=== PATIENT | female | born 1930 | race Caucasian/White ===

== ENCOUNTER 2016-09-29 13:29 | Emergency (ER) | payer MEDICARE ==
[2016-09-29 14:03] LABS: Bacteria/HPF 2+ HPF (None Seen); Bilirubin Negative (Negative); Blood, Urine Negative (Negative); Glucose, Urine (Dipstick) Negative (Negative); Ketone, Urine Negative (Negative); Nitrite Negative (Negative); Protein, Urine (Dipstick) 100 mg/dL (Neg-Trace); RBC/HPF 0-3 HPF (0-3); Squamous Epithelial 0-3 HPF (0-3); Urobilinogen 0.2 mg/dL (0.2-1.0)
[2016-09-29] MEDS ORDERED: Sulfameth/Trimethoprim DS 800-160mg TAB ONE (14:20)
--- NOTE | 2016-09-29 14:31 | ERRECORD ---
[facility] EMERGENCY RECORD HPI UTI (13:42 WMEI) CHIEF COMPLAINT: Patient presents for evaluation of urinary tract infection signs or symptoms:, dysuria, frequency, Patient presents for evaluation of hz of recurrent utis last one 6 mths ago. HISTORIAN: History provided by patient, x 5 days. LOCATION: Symptoms are localized, most severe in the suprapubic region, Radiation to the back. TIME COURSE: Gradual onset of symptoms, 5, days priror to arrival. ASSOCIATED WITH FEMALE: No associated chills, No associated fever. EXACERBATED BY: Patient's condition exacerbated by nothing. RELIEVED BY: Patient's condition relieved by nothing. ROS (13:44 WMEI) CONSTITUTIONAL: Historian denies chills, denies fever. EYES: Historian denies eye pain, denies eye discharge. ENT: Historian denies rhinorrhea, denies sore throat. CARDIOVASCULAR: Historian denies chest pain, no radiation. RESPIRATORY: Historian denies cough, denies shortness of breath. GI: Historian denies abdominal pain, denies nausea. GENITOURINARY FEMALE: Historian reports dysuria, reports urgency. MUSCULOSKELETAL: Historian denies joint stiffness, denies joint swelling. SKIN: Historian denies skin changes, denies skin lesions. NEUROLOGIC: Historian denies confusion, denies mental status changes. PSYCHIATRIC: Historian denies anxiety, denies depression, denies drug abuse. PAST MEDICAL HISTORY (13:37 CTUR) MEDICAL HISTORY: Flu vaccine up to date, Tetanus not up to date, Pneumococcal vaccine up to date, Flu vaccine up to date, Tetanus not up to date, Pneumococcal vaccine up to date, Past medical history includes gastrointestinal disease, diverticulitis, DIAGNOSED 04/2015, Notes: [place], TIA, HYPOTHYROIDISM, MENIERES DISEASE, Past medical history includes history of diabetes, Type II, Past medical history includes history of hyperlipidemia, /Past /medical history includes history of hypertension. 05/08/16. pt denies having had a TIA and no hypothyroidism on 09/29/16. 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 denies having her gall bladder removed on 09/29/16. PSYCHIATRIC HISTORY: No previous psychiatric history. verified 05/08/16. denies 1/08/17. SOCIAL HISTORY: Patient denies alcohol use, Patient denies drug use, Patient has no smoking history, Patient denies alcohol use, Patient denies drug use, Patient has no smoking history. 05/08/16. &a-1R&a+25V*p+0X*x4043Z*c152B*c15G*c2P*p-0X&a-25V&a+1R Name: Mayela Altman : F86 MedRec: [id number] AcctNum: [id number] Prepared: Meka Sep 29, 2016 14:51 by Interface Page 1 of 4 pMD [facility] EMERGENCY RECORD KNOWN ALLERGIES No Known Drug Allergies (Unconfirmed) CURRENT MEDICATIONS (13:39 CTUR) pravastatin: TABLET : Strength - 40 mg : ORAL Patient Dose: 1 tab(s) Oral once a day. amLODIPine: TABLET : Strength - 10 mg : ORAL Patient Dose: 1 tab(s) Oral once a day. fenofibrate: TABLET : Strength - 160 mg : ORAL Patient Dose: 145 mg Oral once a day. Zetia: TABLET : Strength - 10 mg : ORAL Patient Dose: 1 tab(s) Oral once a day. levothyroxine: TABLET : Strength - 75 mcg : ORAL Patient Dose: 1 tab(s) Oral once a day. Namenda XR: CAPSULE SPRINKLE, EXTENDED RELEASE 24 HR : Strength - 7 mg : ORAL Patient Dose: 1 tab(s) Oral once a day (in the evening).1 TAB DAILY 14 DAYS THEN 2 TABS DAILY. donepezil: TABLET : Strength - 10 mg : ORAL Patient Dose: 1 tab(s) Oral once a day (at bedtime). vitamin E: CAPSULE : Strength - 1,000 unit : ORAL Patient Dose: 400 mg Oral once a day. Lantus Solostar: INSULIN PEN (ML) : Strength - 100 unit/mL (3 mL) : [15 mL(s)] : SUBCUTANEOUS Patient Dose: 17 units Subcutaneous once a day (in the morning). meTOPROLOL tartrate: TABLET : Strength - 25 mg : ORAL Patient Dose: 1 tab(s) Oral 2 times a day. Plavix: TABLET : Strength - 75 mg : ORAL Patient Dose: 1 tab(s) Oral once a day (in the morning). Complete Multivitamin: TABLET : ORAL Patient Dose: 1 tab(s) Oral once a day (in the morning). hydrALAZINE: TABLET : Strength - 25 mg : ORAL Patient Dose: 1 tab(s) Oral 3 times a day. VITAL SIGNS (13:34 CTUR) VITAL SIGNS: BP: 153/69, Pulse: 71, Resp: 16, Temp: 97.8 (Oral), Pain: 7, O2 sat: 95 on Room Air, Time: 09/29/2016 13:34. &a-1R&a+25V*p+0X*f9236K*c152B*c15G*c2P*p-0X&a-25V&a+1R Name: Mayela Altman : F86 MedRec: [id number] AcctNum: [id number] Prepared: Meka Sep 29, 2016 14:51 by Interface Page 2 of 4 pMD [facility] EMERGENCY RECORD PHYSICAL EXAM (13:49 WMEI) CONSTITUTIONAL: Vital signs reviewed, Patient appears non toxic, Patient alert and oriented to person, place and time. HEAD: Head exam included findings of head atraumatic, normocephalic. EYES: Conjunctiva normal, Sclera normal. ENT: Ear exam normal, Nose exam normal. NECK: Neck exam included findings of normal range of motion, Trachea midline. RESPIRATORY CHEST: Breath sounds clear, Chest exam included findings of chest movement symmetrical. CARDIOVASCULAR: Cardiovascular exam included findings of heart rate regular rate and rhythm, Heart sounds normal. ABDOMEN FEMALE: Abdominal exam included findings of abdomen tender, to the suprapubic region, mild intensity, Liver normal, Spleen normal. BACK: Back exam included findings of normal inspection, range of motion normal. UPPER EXTREMITY: Upper extremity exam included findings of inspection normal, Range of motion normal, Motor strength normal. LOWER EXTREMITY: Lower extremity exam included findings of inspection normal, Range of motion normal, Motor strength normal, no edema. NEURO: Lindsey coma scale 15, Neuro exam findings include patient oriented to person, place and time, Speech normal, Gait normal. SKIN: Skin exam included findings of skin warm, dry, and normal in color. LYMPHATIC: Lymphatic exam normal. PSYCHIATRIC: Psychiatric exam included findings of patient oriented to person place and time, Normal affect, Judgment normal, Insight normal. MEDICATION ADMINISTRATION SUMMARY Drug Name: Bactrim DS, Dose Ordered: 1 tab(s), Route: Oral, Status: Given, Time: 14:20 09/29/2016, Detailed record available in Medication Service section. PROBLEM LIST No recorded problems DIAGNOSIS (14:12 WMEI) FINAL: PRIMARY: UTI. PRESCRIPTION (14:12 WMEI) Bactrim DS: TABLET : 800 mg-160 mg : ORAL : Quantity: 1 Unit: tab(s) Route: ORAL Schedule: 2 times a day (before meals) Dispense: 14 Unit: tab(s) May substitute. Refills: No Refills . NOTES: No refills. &a-1R&a+25V*p+0X*f5525C*c152B*c15G*c2P*p-0X&a-25V&a+1R Name: Mayela Altmna : F86 MedRec: [id number] AcctNum: [id number] Prepared: Meka Sep 29, 2016 14:51 by Interface Page 3 of 4 pMD [facility] EMERGENCY RECORD DISPOSITION PATIENT: Disposition Type: Discharge, Disposition: *Discharge Home. (14:12 WMEI) Patient left the department. (14:22 LGIB) Cameron: CTUR=ROBER Valadez, Bonnie LGIB=ROBER Blanco, Lena WMEI=DO Daniel William &a-1R&a+25V*p+0X*p0138F*c152B*c15G*c2P*p-0X&a-25V&a+1R Name: Mayela Altman : F86 MedRec: [id number] AcctNum: [id number] Prepared: Meka Sep 29, 2016 14:51 by Interface Page 4 of 4 pMD MTDD
--- NOTE | 2016-09-29 14:34 | PICIS ---
[facility] EMERGENCY RECORD TRIAGE (13:34 CTUR) TRIAGE NOTES: Patient reports for the past four to five days she has been having low back pain and burning with urination. (13:34 CTUR) PATIENT: NAME: Mayela Altman, AGE: 86, GENDER: female, : Sat 1930, TIME OF GREET: Sun Sep 29, 2016 13:29, PREFERRED LANGUAGE: Italian, ETHNICITY: Not or , ECODE BILLING MAP: [facility], SSN: [id number], Zip Code: [address], KG WEIGHT: 63.96, PHONE: , , , PERSON ID: [id number], PAYMENT: X Medicare, PCP: MD Brizuela Kyle. (13:34 CTUR) ADMISSION: URGENCY: 4 Non Urgent, ADMISSION SOURCE: Home, TRANSPORT: CAR, BED: TRIAGE. (13:34 CTUR) SIRS SCORING: Heart Rate 55-109 (0), Temp range 96.8-101.1 (0), respiratory rate 12-24 (0), Latest WBC 3-14.9 (0), Mental Status altered: no (0). (13:37 CTUR) TRIAGE SCREENING: Patient denies suicidal ideation, Patient denies presence of domestic violence. (13:37 CTUR) PROVIDERS: TRIAGE NURSE: Bonnie Valadez RN. (13:34 CTUR) VITAL SIGNS: BP 153/69, Pulse 71, Resp 16, Temp 97.8, (Oral), Pain 7, O2 Sat 95, on Room Air, Time 09/29/2016 13:34. (13:34 CTUR) PREVIOUS VISIT ALLERGIES: No Known Drug Allergies. (13:34 CTUR) No Known Drug Allergies. (13:37 CTUR) KNOWN ALLERGIES No Known Drug Allergies (Unconfirmed) CURRENT MEDICATIONS (13:39 CTUR) pravastatin: TABLET : Strength - 40 mg : ORAL Patient Dose: 1 tab(s) Oral once a day. amLODIPine: TABLET : Strength - 10 mg : ORAL Patient Dose: 1 tab(s) Oral once a day. fenofibrate: TABLET : Strength - 160 mg : ORAL Patient Dose: 145 mg Oral once a day. Zetia: TABLET : Strength - 10 mg : ORAL Patient Dose: 1 tab(s) Oral once a day. levothyroxine: TABLET : Strength - 75 mcg : ORAL Patient Dose: 1 tab(s) Oral once a day. Namenda XR: CAPSULE SPRINKLE, EXTENDED RELEASE 24 HR : Strength - 7 mg : ORAL Patient Dose: 1 tab(s) Oral once a day (in the evening).1 TAB DAILY 14 DAYS THEN 2 TABS DAILY. donepezil: TABLET : Strength - 10 mg : ORAL Patient Dose: 1 tab(s) Oral once a day (at bedtime). vitamin E: &a-1R&a+25V*p+0X*h2062B*c152B*c15G*c2P*p-0X&a-25V&a+1R Name: Mayela Altman : F86 MedRec: [id number] AcctNum: [id number] Prepared: Meka Sep 29, 2016 14:57 by Interface Page 1 of 6 pMD [facility] EMERGENCY RECORD CAPSULE : Strength - 1,000 unit : ORAL Patient Dose: 400 mg Oral once a day. Lantus Solostar: INSULIN PEN (ML) : Strength - 100 unit/mL (3 mL) : [15 mL(s)] : SUBCUTANEOUS Patient Dose: 17 units Subcutaneous once a day (in the morning). meTOPROLOL tartrate: TABLET : Strength - 25 mg : ORAL Patient Dose: 1 tab(s) Oral 2 times a day. Plavix: TABLET : Strength - 75 mg : ORAL Patient Dose: 1 tab(s) Oral once a day (in the morning). Complete Multivitamin: TABLET : ORAL Patient Dose: 1 tab(s) Oral once a day (in the morning). hydrALAZINE: TABLET : Strength - 25 mg : ORAL Patient Dose: 1 tab(s) Oral 3 times a day. VITAL SIGNS (13:34 CTUR) VITAL SIGNS: BP: 153/69, Pulse: 71, Resp: 16, Temp: 97.8 (Oral), Pain: 7, O2 sat: 95 on Room Air, Time: 09/29/2016 13:34. NURSING ASSESSMENT: GENITOURINARY (13:43 CTUR) CONSTITUTIONAL: Complex assessment performed, Patient arrives ambulatory, Gait steady, History obtained from patient, Patient appears comfortable, Patient cooperative, Patient alert, Oriented to person, place and time, Skin warm, Skin dry, Skin normal in color, Mucous membranes pink, Mucous membranes moist, Patient complains of Dysuria/Low back pain, Patient reports having low back pain and painful urination for the past five days. PAIN FEMALE: aching pain, to the suprapubic region, low back, on a scale 0-10 patient rates pain as 7. NONVERBAL PAIN: Non-Verbal pain assessment findings include: No non-verbal complaints while at rest (0), Non-Verbal complaints not present with movement (0), Facial Grimaces not present at rest (0), Facial grimaces not present with movement (0), Bracing not present at rest (0), Bracing not present with movement (0), Restlessness not present at rest (0), Restlessness not present with movement (0), Rubbing not present at rest (0), Rubbing not present with movement (0), Result: 0. GENITOURINARY FEMALE: Associated with urinary complaints, burning, dysuria, Date and time of last void: 09/29/2016 13:44. ABDOMEN: Abdomen assessment findings include abdomen symmetrical, Abdomen soft, non-tender, no associated nausea, no associated vomiting, no associated diarrhea. SAFETY: Side rails up, Cart/Stretcher in lowest position, Family at bedside, Call light within reach, Hospital ID band on. &a-1R&a+25V*p+0X*d4055T*c152B*c15G*c2P*p-0X&a-25V&a+1R Name: Mayela Altman : F86 MedRec: [id number] AcctNum: [id number] Prepared: Meka Sep 29, 2016 14:57 by Interface Page 2 of 6 pMD [facility] EMERGENCY RECORD NURSING PROCEDURE: DISCHARGE NOTE (14:23 LGIB) DISCHARGE: Patient discharged to home, ambulating with cane, family driving, accompanied by parent, Summary of Care printed/ provided, Patient requested and was provided an electronic copy of Discharge Instructions, Discharge instructions given to patient, Simple or moderate discharge teaching performed, Prescriptions given and instructions on side effects given, Above person(s) verbalized understanding of discharge instructions and follow-up care, Patient treated and evaluated by physician. BELONGINGS: Belongings and valuables with patient at time of discharge include:, Belongings remain with patient, Valuables remain with patient. ORDER DETAILS Order Name: Culture, Urine, Status: Active, Time: 14:11 09/29/2016, User: [facility], - Ordered for: DO Daniel William, - Entered by: DO Daniel William - Meka Sep 29, 2016 14:11, - Quantity: 1, Order Name: Urinalysis with Microscopic, Status: Active, Time: 13:42 09/29/2016, User: [facility], - Ordered for: DO Daniel William, - Entered by: DO Daniel William - Meka Sep 29, 2016 13:42, - Quantity: 1. MEDICATION ADMINISTRATION SUMMARY Drug Name: Bactrim DS, Dose Ordered: 1 tab(s), Route: Oral, Status: Given, Time: 14:20 09/29/2016, Detailed record available in Medication Service section. MEDICATION SERVICE (14:20 WMEI) Bactrim DS: Order: Bactrim DS (sulfamethoxazole/trimethoprim) - Dose: 1 tab(s) : Oral Schedule: Now Ordered by: Sameer Daniel DO Entered by: DO Meka Jamison Sep 29, 2016 14:12 , Acknowledged by: ROBER Lara Sep 29, 2016 14:19 Documented as given by: ROBER Lara Sep 29, 2016 14:20 Patient, Medication, Dose, Route and Time verified prior to administration. Site: Medication administered P.O., Correct patient, time, route, dose and medication confirmed prior to administration, Patient advised of actions and side-effects prior to administration, Allergies confirmed and medications reviewed prior to administration, Patient in position of comfort, Side rails up, Cart in lowest position, Family at bedside. HPI UTI (13:42 WMEI) &a-1R&a+25V*p+0X*o3750A*c152B*c15G*c2P*p-0X&a-25V&a+1R Name: Mayela Altman : F86 MedRec: [id number] AcctNum: [id number] Prepared: Meka Sep 29, 2016 14:57 by Interface Page 3 of 6 pMD [facility] EMERGENCY RECORD CHIEF COMPLAINT: Patient presents for evaluation of urinary tract infection signs or symptoms:, dysuria, frequency, Patient presents for evaluation of hz of recurrent utis last one 6 mths ago. HISTORIAN: History provided by patient, x 5 days. LOCATION: Symptoms are localized, most severe in the suprapubic region, Radiation to the back. TIME COURSE: Gradual onset of symptoms, 5, days priror to arrival. ASSOCIATED WITH FEMALE: No associated chills, No associated fever. EXACERBATED BY: Patient's condition exacerbated by nothing. RELIEVED BY: Patient's condition relieved by nothing. ROS (13:44 WMEI) CONSTITUTIONAL: Historian denies chills, denies fever. EYES: Historian denies eye pain, denies eye discharge. ENT: Historian denies rhinorrhea, denies sore throat. CARDIOVASCULAR: Historian denies chest pain, no radiation. RESPIRATORY: Historian denies cough, denies shortness of breath. GI: Historian denies abdominal pain, denies nausea. GENITOURINARY FEMALE: Historian reports dysuria, reports urgency. MUSCULOSKELETAL: Historian denies joint stiffness, denies joint swelling. SKIN: Historian denies skin changes, denies skin lesions. NEUROLOGIC: Historian denies confusion, denies mental status changes. PSYCHIATRIC: Historian denies anxiety, denies depression, denies drug abuse. PAST MEDICAL HISTORY (13:37 CTUR) MEDICAL HISTORY: Flu vaccine up to date, Tetanus not up to date, Pneumococcal vaccine up to date, Flu vaccine up to date, Tetanus not up to date, Pneumococcal vaccine up to date, Past medical history includes gastrointestinal disease, diverticulitis, DIAGNOSED 04/2015, Notes: [place], TIA, HYPOTHYROIDISM, MENIERES DISEASE, Past medical history includes history of diabetes, Type II, Past medical history includes history of hyperlipidemia, /Past /medical history includes history of hypertension. 05/08/16. pt denies having had a TIA and no hypothyroidism on 09/29/16. 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 denies having her gall bladder removed on 09/29/16. PSYCHIATRIC HISTORY: No previous psychiatric history. verified 05/08/16. denies 09/29/16. SOCIAL HISTORY: Patient denies alcohol use, Patient denies drug use, Patient has no smoking history, Patient denies alcohol use, Patient denies drug use, Patient has no smoking history. 05/08/16. &a-1R&a+25V*p+0X*l3679E*c152B*c15G*c2P*p-0X&a-25V&a+1R Name: Mayela Altman : F86 MedRec: [id number] AcctNum: [id number] Prepared: Meka Sep 29, 2016 14:57 by Interface Page 4 of 6 pMD [facility] EMERGENCY RECORD PHYSICAL EXAM (13:49 WMEI) CONSTITUTIONAL: Vital signs reviewed, Patient appears non toxic, Patient alert and oriented to person, place and time. HEAD: Head exam included findings of head atraumatic, normocephalic. EYES: Conjunctiva normal, Sclera normal. ENT: Ear exam normal, Nose exam normal. NECK: Neck exam included findings of normal range of motion, Trachea midline. RESPIRATORY CHEST: Breath sounds clear, Chest exam included findings of chest movement symmetrical. CARDIOVASCULAR: Cardiovascular exam included findings of heart rate regular rate and rhythm, Heart sounds normal. ABDOMEN FEMALE: Abdominal exam included findings of abdomen tender, to the suprapubic region, mild intensity, Liver normal, Spleen normal. BACK: Back exam included findings of normal inspection, range of motion normal. UPPER EXTREMITY: Upper extremity exam included findings of inspection normal, Range of motion normal, Motor strength normal. LOWER EXTREMITY: Lower extremity exam included findings of inspection normal, Range of motion normal, Motor strength normal, no edema. NEURO: Lindsey coma scale 15, Neuro exam findings include patient oriented to person, place and time, Speech normal, Gait normal. SKIN: Skin exam included findings of skin warm, dry, and normal in color. LYMPHATIC: Lymphatic exam normal. PSYCHIATRIC: Psychiatric exam included findings of patient oriented to person place and time, Normal affect, Judgment normal, Insight normal. EVENTS TRANSFER: Triage to Emergency Triage. (Meka Sep 29, 2016 13:34 CTUR) Emergency Triage to Emergency Room -04. (13:34 CTUR) Removed from Emergency Emergency Room -04. (14:22 LGIB) PROBLEM LIST No recorded problems DIAGNOSIS (14:12 WMEI) FINAL: PRIMARY: UTI. DISPOSITION PATIENT: Disposition Type: Discharge, Disposition: *Discharge Home. (14:12 WMEI) Patient left the department. (14:22 LGIB) INSTRUCTION (14:13 WMEI) DISCHARGE: UTI CYSTITIS FEMALE ADULT. &a-1R&a+25V*p+0X*l7740O*c152B*c15G*c2P*p-0X&a-25V&a+1R Name: Mayela Altman : F86 MedRec: [id number] AcctNum: [id number] Prepared: Meka Sep 29, 2016 14:57 by Interface Page 5 of 6 pMD [facility] EMERGENCY RECORD FOLLOWUP: [facility], [facility], [address] [place] [address], . SPECIAL: Follow-up with your PCP. PRESCRIPTION (14:12 WMEI) Bactrim DS: TABLET : 800 mg-160 mg : ORAL : Quantity: 1 Unit: tab(s) Route: ORAL Schedule: 2 times a day (before meals) Dispense: 14 Unit: tab(s) May substitute. Refills: No Refills . NOTES: No refills. IMAGING (14:24 LGIB) *DISCHARGE INSTRUCTIONS RECEIPT: Image captured from scanner. *SUPPLY CHARGE SHEET: Image captured from scanner. ADMIN (14:45 WMEI) DIGITAL SIGNATURE: DO Daniel William. Cameron: CTUR=ROBER Valadez, Bonnie LGIB=ROBER Blanco, Lena WMEI=DO Daniel William &a-1R&a+25V*p+0X*l7874U*c152B*c15G*c2P*p-0X&a-25V&a+1R Name: Mayela Altman : F86 MedRec: [id number] AcctNum: [id number] Prepared: Meka Sep 29, 2016 14:57 by Interface Page 6 of 6 pMD MTDD
== END 2016-09-29 14:22 | disposition home or self-care (01) ==
LOC: BURERS 13:29
DX: N39.0 Urinary tract infection, site not specified (principal); I25.2 Old myocardial infarction; E03.9 Hypothyroidism, unspecified; I10 Essential (primary) hypertension; E78.5 Hyperlipidemia, unspecified; E11.9 Type 2 diabetes mellitus without complications; Z86.73 Personal history of transient ischemic attack (TIA), and cerebral infarction without residual deficits; Z90.49 Acquired absence of other specified parts of digestive tract; Z95.5 Presence of coronary angioplasty implant and graft; Z95.0 Presence of cardiac pacemaker; Z79.01 Long term (current) use of anticoagulants; Z79.899 Other long term (current) drug therapy
CPT/HCPCS: 81001; 87086; 99283

== ENCOUNTER 2016-11-01 14:54 | Outpatient (CLI) | payer MEDICARE ==
[2016-11-01 15:30] LABS: #Eosinphils 0.2 thou/uL (0.0-0.7); #Lymphocytes 1.9 thou/uL (1.20-3.40); #Monocytes 0.5 thou/uL (0.11-0.59); #Neutrophils 2.3 thou/uL (1.40-6.50); %Basophils 0.9 % (0.0-1.0); %Eosinophils 3.4 % (0.0-10.0); %Monocytes 10.3 % (0.0-10.0); Hematocrit 35.8 % (36.0-47.0); Mean Platelet Volume 6.2 fL (7.4-10.4); Red Blood Cell (RBC) Count 3.62 mill/uL (4.20-5.40); White Blood Cell (WBC) Count 4.9 thou/uL (4.8-10.8)
[2016-11-01 15:48] LABS: Hemoglobin A1c 8.4 % (4.0-6.0)
[2016-11-01 15:50] LABS: ALT (SGPT) 13 U/L (0-55); AST (SGOT) 16 U/L (5-34); Alkaline Phosphatase 70 U/L (40-150); Anion Gap 11 mmol/L (10-20); BUN (Urea Nitrogen) 39 mg/dL (9.8-20.1); Bilirubin, Total 0.2 mg/dL (0.2-1.2); Calc. Creatinine Clearance 0 mL/min (70-130); Calcium 9.1 mg/dL (7.8-10.44); Carbon Dioxide 25 mmol/L (23-31); Chloride 105 mmol/L (98-107); Estimated GFR-MDRD 28; Globulin 4.1 g/dL (2.4-3.5); LDL Cholesterol, Calculated 57 mg/dL; Protein, Total 7.6 g/dL (5.8-8.1)
== END 2016-11-01 14:55 ==
LOC: HPCALD 14:54
PROVIDERS: ATTEND Family Medicine
DX: E11.9 Type 2 diabetes mellitus without complications (principal); I10 Essential (primary) hypertension; E03.9 Hypothyroidism, unspecified; E78.2 Mixed hyperlipidemia
CPT/HCPCS: 36415; 80053; 80061; 83036; 84439; 84443; 85025

== ENCOUNTER 2017-01-11 18:35 | Observation (INO) | payer MEDICARE ==
[2017-01-11 19:17] LABS: #Eosinphils 0.2 thou/uL (0.0-0.7); #Lymphocytes 2.2 thou/uL (1.20-3.40); #Monocytes 0.4 thou/uL (0.11-0.59); #Neutrophils 2.2 thou/uL (1.40-6.50); %Basophils 0.9 % (0.0-1.0); %Eosinophils 3.1 % (0.0-10.0); %Lymphocytes 44.5 % (21.0-51.0); %Monocytes 8.7 % (0.0-10.0); %Neutrophils 42.8 % (42.0-75.0); Hemoglobin 12.2 g/dL (12.0-16.0); MDiff Complete? YES; Macrocytosis SLIGHT = 6-15 cells (100X) (0-5/hpf); Mean Corpuscular HGB CONC 33.9 g/dL (32.0-36.0); Mean Corpuscular Hemoglobin 34.4 pg (27.0-31.0); Mean Platelet Volume 6.9 fL (7.4-10.4); Platelet Count 181 thou/uL (130-400); RBC Distribution Width 12.4 % (11.5-14.5); Red Blood Cell (RBC) Count 3.55 mill/uL (4.20-5.40)
[2017-01-11 19:23] LABS: CKMB 1.6 ng/mL (0-6.6); Troponin I 0.011 ng/mL (< 0.028)
[2017-01-11 19:27] LABS: ALT (SGPT) 16 U/L (0-55); AST (SGOT) 20 U/L (5-34); Albumin 3.6 g/dL (3.4-4.8); Alkaline Phosphatase 54 U/L (40-150); Anion Gap 11 mmol/L (10-20); BUN (Urea Nitrogen) 33 mg/dL (9.8-20.1); Bilirubin, Total 0.3 mg/dL (0.2-1.2); Calc. Creatinine Clearance 0 mL/min (70-130); Calcium 9.2 mg/dL (7.8-10.44); Carbon Dioxide 25 mmol/L (23-31); Chloride 105 mmol/L (98-107); Estimated GFR-MDRD 24; Globulin 4.2 g/dL (2.4-3.5); Glucose 290 mg/dL (83-110); Lipase 67 U/L (8-78); Potassium 4.1 mmol/L (3.5-5.1); Protein, Total 7.8 g/dL (5.8-8.1); Sodium 137 mmol/L (136-145)
--- NOTE | 2017-01-11 19:35 | RAD ---
CHEST TWO VIEWS 01/11/17 Comparison is made with the 10/31/15 study. Mild cardiomegaly is no different than before. Faint calcification is seen in the aortic arch and me epifanio sternotomy sutures unique prior surgery. A cardiac pacer remains in place. There is no vascular c ongestion, edema, or pleural effusion. The lungs are clear. IMPRESSION: Stable exam showing no acute finding. POS: HOME
[2017-01-11 19:58] LABS: Bilirubin Negative (Negative); Blood, Urine Negative (Negative); Clarity Clear (Clear); Glucose, Urine (Dipstick) 500 mg/dL (Negative); Leukocyte Negative (Negative); Nitrite Negative (Negative); Protein, Urine (Dipstick) Negative (Neg-Trace); Specific Gravity, Urine 1.015 (1.005-1.030); Urobilinogen 0.2 mg/dL (0.2-1.0); pH, Urine 7.5 (5.0-9.0)
[2017-01-11] MEDS ORDERED: Nitroglycerin 0.4 MG TAB (25 Tab Bottle) ONE (20:44)
[2017-01-11] MEDS ORDERED: Insulin Regular 300 UNITS/3 ML VIAL ONE (21:32)
[2017-01-12 05:17] LABS: #Basophils 0.1 thou/uL (0.0-0.2); #Eosinphils 0.2 thou/uL (0.0-0.7); #Lymphocytes 2.5 thou/uL (1.20-3.40); #Monocytes 0.5 thou/uL (0.11-0.59); #Neutrophils 2.7 thou/uL (1.40-6.50); %Basophils 1.5 % (0.0-1.0); %Eosinophils 3.8 % (0.0-10.0); %Lymphocytes 41.4 % (21.0-51.0); %Monocytes 8.7 % (0.0-10.0); %Neutrophils 44.6 % (42.0-75.0); Hemoglobin 12.8 g/dL (12.0-16.0); Mean Corpuscular HGB CONC 33.8 g/dL (32.0-36.0); Mean Corpuscular Hemoglobin 33.8 pg (27.0-31.0); Mean Platelet Volume 6.9 fL (7.4-10.4); Platelet Count 213 thou/uL (130-400); RBC Distribution Width 12.1 % (11.5-14.5); Red Blood Cell (RBC) Count 3.78 mill/uL (4.20-5.40)
[2017-01-12 05:38] LABS: Anion Gap 12 mmol/L (10-20); BUN (Urea Nitrogen) 29 mg/dL (9.8-20.1); Calcium 9.4 mg/dL (7.8-10.44); Carbon Dioxide 24 mmol/L (23-31); Chloride 109 mmol/L (98-107); Glucose 160 mg/dL (83-110); Potassium 3.9 mmol/L (3.5-5.1); Sodium 141 mmol/L (136-145)
[2017-01-12 05:46] LABS: Troponin I 0.021 ng/mL (< 0.028)
[2017-01-12 07:51] LABS: Calc. Creatinine Clearance 26 mL/min (70-130); Estimated GFR-MDRD 30
[2017-01-12 08:59] VITALS: BP 135/68; TEMP 98.1
[2017-01-12] MEDS: Levemir Flexpen 100 UNITS/ML PEN SC SCH (12:43)
[2017-01-12] MEDS ORDERED: traMADol HCl 50 MG TAB PO PRN (12:55)
[2017-01-12] MEDS ORDERED: HumaLOG 300 UNITS/3 ML VIAL SC PRN (13:17)
[2017-01-12] MEDS ORDERED: Dextrose 50% Abboject 50 ML SYRINGE SLOW IVP PRN (13:17)
[2017-01-12] MEDS ORDERED: Dextrose 5% in Water 1,000 ML IV PRN (13:17)
[2017-01-12] MEDS: HumaLOG 300 UNITS/3 ML VIAL SC PRN (13:55)
[2017-01-12] MEDS: Ezetimibe 10 MG TAB PO SCH (14:36)
[2017-01-12] MEDS: Famotidine 20 MG TAB PO SCH (14:36)
[2017-01-12] MEDS: Multivitamin W/ Minerals 1 TAB PO SCH (14:36)
[2017-01-12] MEDS: Clopidogrel Bisulfate 75 MG TAB PO SCH (14:37)
[2017-01-12] MEDS ORDERED: Atorvastatin Calcium 10 MG TAB PO SCH (21:00)
[2017-01-12] MEDS ORDERED: Famotidine 20 MG TAB PO SCH (21:00)
[2017-01-13] MEDS ORDERED: Levothyroxine Sodium 50 MCG TAB PO SCH (06:00)
[2017-01-13] MEDS ORDERED: Ezetimibe 10 MG TAB PO SCH (09:00)
[2017-01-13] MEDS ORDERED: Multivitamin W/ Minerals 1 TAB PO SCH (09:00)
[2017-01-13] MEDS ORDERED: Clopidogrel Bisulfate 75 MG TAB PO SCH (09:00)
[2017-01-13] MEDS ORDERED: Vitami E (Dl,Tocopheryl Acet) 400 UNITS CAP PO SCH (09:00)
== END 2017-01-12 14:45 | disposition home or self-care (01) ==
LOC: BURERS 18:35 → BURMED 22:00
PROVIDERS: ADMIT Family Medicine; ATTEND Family Medicine
DX: R53.1 Weakness (principal); I25.2 Old myocardial infarction; I25.10 Atherosclerotic heart disease of native coronary artery without angina pectoris; Z95.1 Presence of aortocoronary bypass graft; E03.9 Hypothyroidism, unspecified; K57.90 Diverticulosis of intestine, part unspecified, without perforation or abscess without bleeding; I10 Essential (primary) hypertension; Z79.4 Long term (current) use of insulin; Z79.84 Long term (current) use of oral hypoglycemic drugs; Z79.899 Other long term (current) drug therapy; E11.65 Type 2 diabetes mellitus with hyperglycemia; E86.0 Dehydration; Z79.82 Long term (current) use of aspirin
CPT/HCPCS: 36416; 51701; 71020; 80048; 80053; 81003; 82553; 83605; 83690; 83880; 84443; 84484; 85025; 87040; 93005; 94760; 96372; 36415-59; A4216; A4353; G0378; J1815

== ENCOUNTER 2017-03-10 14:54 | Outpatient (CLI) | payer MEDICARE ==
[2017-03-10 16:04] LABS: Free T4 (Free Thyroxine) 1.22 ng/dL (0.70-1.48); Thyroid Stimulating Hormone 0.7793 uIU/mL (0.35-4.94)
[2017-03-10 18:10] LABS: Iron 57 ug/dL (50-170); Iron Binding Capacity, Total 341 mcg/dL (265-497)
[2017-03-10 18:38] LABS: Ferritin 112.77 ng/mL (10-291)
[2017-03-10 19:12] LABS: Vitamin B12 Greater than 2000 pg/mL (211-911)
== END 2017-03-10 14:55 | disposition home or self-care (01) ==
LOC: HPCALD 14:54
PROVIDERS: ATTEND Family Medicine
DX: E03.9 Hypothyroidism, unspecified (principal); D64.9 Anemia, unspecified; Z79.899 Other long term (current) drug therapy
CPT/HCPCS: 36415; 82607; 82728; 82746; 83540; 83550; 84439; 84443

== ENCOUNTER 2017-04-22 10:41 | Outpatient (CLI) | payer MEDICARE ==
--- NOTE | 2017-04-22 20:30 | RAD ---
LEFT WRIST THREE VIEWS 04/22/17 No fracture or area of bony destruction is seen. There are moderately severe arthritic changes in th e first carpometacarpal joint in between the scaphoid and the triquetrum. Deformity at the base of t he first metacarpal suggest an old fracture here, so this may be posttraumatic arthritis. The carpal relationships appear normal. The distal radius and ulna and metacarpals all show no acute change. I ncidentally noted are arterial calcifications. 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 POS: HOME
--- NOTE | 2017-04-22 20:32 | RAD ---
LEFT HAND THREE VIEWS 04/22/17 Arthritic changes are present in the IP joints of the fingers, particularly distally. The DIP joint of the middle finger is perhaps most involved. No acute fractures or areas of bony destruction were seen. Very extensive degenerative changes are seen along the lateral row of carpals leading up to th e base of the first metacarpal. The first metacarpal probably has prior trauma proximally. IMPRESSION: Arthritic changes as noted. POS: HOME
--- NOTE | 2017-04-22 20:36 | RAD ---
RIGHT WRIST THREE VIEWS 04/22/17 The findings in this wrist are similar to the left. No fracture or area of bony destruction was seen . There are extensive arthritic changes in the lateral carpal compartment, but particularly between the trapezium and the base of the first metacarpal. I would not be surprised if there had been old t rauma here. The other carpals appear intact, as do the distal radius and ulna. Arterial calcificatio ns are noted. IMPRESSION: Severe arthritic changes, particularly in the first carpometacarpal joint. POS: HOME
--- NOTE | 2017-04-22 20:38 | RAD ---
RIGHT HAND THREE VIEWS 04/22/17 No fracture or area of bony destruction was seen. Arthritic changes are present in the IP joints of the fingers, predominantly PIP and DIP joints. The most involved joint is the PIP joint of the ring finger where there is extensive bony osteophyte overgrowth and slight ulnar subluxation of the middl e phalanx on the proximal. There is some slight narrowing of the MCP joint with a speck of bone seen along the ulnar aspect of the second MCP joint. There may have been old trauma here. Elsewhere, typ ical arthritic changes are seen in the first carpometacarpal joint. IMPRESSION: Arthritic changes as noted above, findings mostly distal with some MCP changes as well. POS: HOME
== END 2017-04-22 10:42 | disposition home or self-care (01) ==
LOC: BURRAD 10:41
PROVIDERS: ATTEND Internal Medicine Rheumatology
DX: M25.531 Pain in right wrist (principal); M19.041 Primary osteoarthritis, right hand; M19.031 Primary osteoarthritis, right wrist; M19.032 Primary osteoarthritis, left wrist; M19.042 Primary osteoarthritis, left hand; M79.642 Pain in left hand; M25.532 Pain in left wrist; M79.641 Pain in right hand

== ENCOUNTER 2017-06-06 09:03 | Outpatient (CLI) | payer MEDICARE ==
[2017-06-06 10:34] LABS: Albumin 3.6 g/dL (3.4-4.8); Anion Gap 13 mmol/L (10-20); BUN (Urea Nitrogen) 36 mg/dL (9.8-20.1); BUN/Creatinine Ratio 20.11; Calc. Creatinine Clearance 0 mL/min (70-130); Calcium 9.5 mg/dL (7.8-10.44); Carbon Dioxide 24 mmol/L (23-31); Chloride 105 mmol/L (98-107); Estimated GFR-MDRD 27; Glucose 177 mg/dL (83-110); Sodium 138 mmol/L (136-145)
[2017-06-06 10:37] LABS: Hemoglobin A1c 7.4 % (4.0-6.0)
[2017-06-06 17:29] LABS: Phosphorus 3.6 mg/dL (2.3-4.7)
[2017-06-06 17:48] LABS: Creatinine, Urine 120.92 mg/dL (47-110); Microalbumin/Creat Ratio 24.8 mg/g (Less than 30)
== END 2017-06-06 09:04 | disposition home or self-care (01) ==
LOC: HPCALD 09:03
PROVIDERS: ATTEND Family Medicine
DX: E11.22 Type 2 diabetes mellitus with diabetic chronic kidney disease (principal); E55.9 Vitamin D deficiency, unspecified; N18.4 Chronic kidney disease, stage 4 (severe)
CPT/HCPCS: 36415; 80069; 82043; 82306; 83036; 83970

== ENCOUNTER 2017-07-27 01:31 | Emergency (ER) | payer MEDICARE ==
[2017-07-27 01:57] LABS: Bilirubin Negative (Negative); Blood, Urine Negative (Negative); Clarity Clear (Clear); Glucose, Urine (Dipstick) Negative (Negative); Leukocyte Trace (Negative); Nitrite Negative (Negative); Protein, Urine (Dipstick) Negative (Neg-Trace); Specific Gravity, Urine 1.015 (1.005-1.030); Urobilinogen 0.2 mg/dL (0.2-1.0)
[2017-07-27 02:05] LABS: Bacteria/HPF None Seen HPF (None Seen); RBC/HPF 0-3 HPF (0-3); Squamous Epithelial 0-3 HPF (0-3); WBC/HPF 0-3 HPF (0-3)
[2017-07-27 02:10] LABS: #Basophils 0.1 thou/uL (0.0-0.2); #Eosinphils 0.2 thou/uL (0.0-0.7); #Lymphocytes 2.4 thou/uL (1.20-3.40); #Monocytes 0.6 thou/uL (0.11-0.59); %Basophils 1.5 % (0.0-1.0); %Eosinophils 4.5 % (0.0-10.0); %Lymphocytes 44.9 % (21.0-51.0); %Monocytes 10.6 % (0.0-10.0); %Neutrophils 38.5 % (42.0-75.0); Hemoglobin 11.3 g/dL (12.0-16.0); Mean Corpuscular Hemoglobin 33.9 pg (27.0-31.0); Mean Corpuscular Volume 99.8 fl (81.0-99.0); Mean Platelet Volume 5.8 fL (7.4-10.4); Platelet Count 241 thou/uL (130-400); RBC Distribution Width 11.1 % (11.5-14.5); Red Blood Cell (RBC) Count 3.34 mill/uL (4.20-5.40); White Blood Cell (WBC) Count 5.3 thou/uL (4.8-10.8)
[2017-07-27 02:24] LABS: ALT (SGPT) 16 U/L (8-55); AST (SGOT) 21 U/L (5-34); Albumin 3.3 g/dL (3.4-4.8); Alkaline Phosphatase 54 U/L (40-150); Anion Gap 13 mmol/L (10-20); BUN (Urea Nitrogen) 30 mg/dL (9.8-20.1); Bilirubin, Total 0.3 mg/dL (0.2-1.2); Calc. Creatinine Clearance 0 mL/min (70-130); Calcium 9.6 mg/dL (7.8-10.44); Carbon Dioxide 24 mmol/L (23-31); Chloride 105 mmol/L (98-107); Estimated GFR-MDRD 25; Globulin 4.3 g/dL (2.4-3.5); Glucose 87 mg/dL (83-110); Lipase 41 U/L (8-78); Potassium 3.8 mmol/L (3.5-5.1); Protein, Total 7.6 g/dL (6.0-8.3); Sodium 138 mmol/L (136-145)
--- NOTE | 2017-07-27 08:46 | CT ---
PRELIMINARY REPORT/[facility]/EMERGENCY AFTER HOURS PROCEDURE: EXAM: CT Abdomen and Pelvis Without Intravenous Contrast EXAM DATE/TIME: Exam ordered 07/27/2017 2:12 AM CLINICAL HISTORY: 87 years old, female; Pain; Abdominal pain; Flank; Right; Patient HX: Rt. Flank pain tonight TECHNIQUE: Axial computed tomography images of the abdomen and pelvis without intravenous contrast. COMPARISON: No relevant prior studies available. FINDINGS: Lower thorax: No acute findings. ABDOMEN: Liver: Unremarkable. Gallbladder and bile ducts: Prior cholecystectomy. No ductal dilation. Pancreas: Unremarkable. No ductal dilation. Spleen: Unremarkable. No splenomegaly. Adrenals: Unremarkable. No mass. Kidneys and ureters: Unremarkable. No obstructing stones. No hydronephrosis. Stomach and bowel: Equivocal mild acute sigmoid diverticulitis. No obstruction. Appendix: Normal appendix. PELVIS: Bladder: Unremarkable. No stones. Reproductive: Small partially calcified uterine fibroids. ABDOMEN and PELVIS: Intraperitoneal space: No pneumoperitoneum or abscess. No significant fluid collection. Bones/joints: Grade 2 anterolisthesis of L5 on S1. No acute fracture. No dislocation. Soft tissues: Unremarkable. Vasculature: Unremarkable. No abdominal aortic aneurysm. Lymph nodes: Unremarkable. No enlarged lymph nodes. IMPRESSION: 1. Equivocal mild acute sigmoid diverticulitis. 2. Small partially calcified uterine fibroids. Thank you for allowing us to participate in the care of your patient. Dictated and Authenticated by: Shahab Jaffe MD 07/27/2017 2:53 AM Central Time ([place] \T\ [place]) FINAL REPORT EMERGENCY AFTER HOURS CT ABDOMEN AND PELVIS NONCONTRAST: Date: 07/27/17 Time: 0213 hours HISTORY: Right flank pain. COMPARISON: 05/29/15. FINDINGS: Findings agree with the preliminary report by Kary. There is no CT evidence of urinary tract obstruc tion or calcification. Nondistention and subtle wall thickening of the distal colon is confirmed, al though the inflammation surrounding the colon on the previous studies is no longer evident. Inflamma tion is favored to not be present. There is prominent calcification throughout the arterial structures. Chronic-type findings are stabl e. POS: [facility]
== END 2017-07-27 03:14 | disposition home or self-care (01) ==
LOC: BURERS 01:31
DX: M54.5 Low back pain (principal); I25.2 Old myocardial infarction; E03.9 Hypothyroidism, unspecified; E78.5 Hyperlipidemia, unspecified; I10 Essential (primary) hypertension; Z79.899 Other long term (current) drug therapy; Z86.73 Personal history of transient ischemic attack (TIA), and cerebral infarction without residual deficits
CPT/HCPCS: 74176; 80053; 81003; 81015; 83690; 85025

== ENCOUNTER 2017-10-02 02:10 | Emergency (ER) | payer MEDICARE ==
[2017-10-02 03:06] LABS: Bilirubin Negative (Negative); Blood, Urine Negative (Negative); Clarity Clear (Clear); Glucose, Urine (Dipstick) Negative (Negative); Leukocyte Trace (Negative); Nitrite Negative (Negative); Protein, Urine (Dipstick) Negative (Neg-Trace); Urobilinogen 0.2 mg/dL (0.2-1.0)
[2017-10-02 03:09] LABS: Bacteria/HPF None Seen HPF (None Seen); RBC/HPF None Seen HPF (0-3); Squamous Epithelial 0-3 HPF (0-3); WBC/HPF 0-3 HPF (0-3)
== END 2017-10-02 03:25 | disposition home or self-care (01) ==
LOC: BURERS 02:10
DX: E11.649 Type 2 diabetes mellitus with hypoglycemia without coma (principal); I25.2 Old myocardial infarction; E03.9 Hypothyroidism, unspecified; E78.5 Hyperlipidemia, unspecified; I10 Essential (primary) hypertension; Z86.73 Personal history of transient ischemic attack (TIA), and cerebral infarction without residual deficits; Z79.899 Other long term (current) drug therapy
CPT/HCPCS: 36416; 81003; 81015; 99284

== ENCOUNTER 2018-04-30 03:27 | Emergency (ER) | payer MEDICARE ==
[2018-04-30 04:21] LABS: #Eosinphils 0.2 thou/uL (0.0-0.7); #Lymphocytes 1.7 thou/uL (1.20-3.40); #Monocytes 0.5 thou/uL (0.11-0.59); #Neutrophils 2.5 thou/uL (1.40-6.50); %Basophils 0.9 % (0.0-1.0); %Eosinophils 4.2 % (0.0-10.0); %Lymphocytes 34.4 % (21.0-51.0); %Monocytes 10.5 % (0.0-10.0); Hemoglobin 10.8 g/dL (12.0-16.0); Mean Corpuscular HGB CONC 35.7 g/dL (32.0-36.0); Mean Corpuscular Hemoglobin 31.4 pg (27.0-31.0); Mean Corpuscular Volume 87.8 fL (78.0-98.0); Mean Platelet Volume 5.6 fL (7.4-10.4); Platelet Count 192 thou/uL (130-400); RBC Distribution Width 12.3 % (11.5-14.5); Red Blood Cell (RBC) Count 3.45 mill/uL (4.20-5.40)
[2018-04-30 04:23] LABS: Clarity CLEAR (Clear); Glucose, Urine (Dipstick) Negative (Negative); Leukocyte Moderate (Negative); Nitrite Negative (Negative); Protein, Urine (Dipstick) Negative (Neg-Trace); pH, Urine 7.5 (5.0-9.0)
[2018-04-30 04:24] LABS: Bilirubin Negative (Negative); Blood, Urine Trace (Negative); Urobilinogen 0.2 mg/dL (0.2-1.0)
[2018-04-30 04:27] LABS: Bacteria/HPF 1+ HPF (None Seen); Squamous Epithelial 0-3 HPF (0-3)
[2018-04-30 04:35] LABS: ALT (SGPT) 20 U/L (8-55); AST (SGOT) 26 U/L (5-34); Albumin 3.2 g/dL (3.4-4.8); Alkaline Phosphatase 48 U/L (40-150); Anion Gap 12 mmol/L (10-20); BUN (Urea Nitrogen) 33 mg/dL (9.8-20.1); Bilirubin, Total 0.4 mg/dL (0.2-1.2); Calc. Creatinine Clearance 0 mL/min (70-130); Calcium 9.4 mg/dL (7.8-10.44); Carbon Dioxide 26 mmol/L (23-31); Chloride 108 mmol/L (98-107); Estimated GFR-MDRD 30; Globulin 4.4 g/dL (2.4-3.5); Glucose 77 mg/dL (83-110); Potassium 3.6 mmol/L (3.5-5.1); Protein, Total 7.6 g/dL (6.0-8.3); Sodium 142 mmol/L (136-145)
[2018-04-30 04:36] LABS: CKMB 1.5 ng/mL (0-6.6); Troponin I 0.041 ng/mL (< 0.028)
[2018-04-30] MEDS ORDERED: cefTRIAXone\\ROCEPHIN 1 GM VIAL ONE (04:52)
[2018-04-30 08:04] LABS: Troponin I 0.035 ng/mL (< 0.028)
== END 2018-04-30 08:12 | disposition home or self-care (01) ==
LOC: BURERS 03:27
DX: N39.0 Urinary tract infection, site not specified (principal); I25.2 Old myocardial infarction; Z86.73 Personal history of transient ischemic attack (TIA), and cerebral infarction without residual deficits; E03.9 Hypothyroidism, unspecified; E11.9 Type 2 diabetes mellitus without complications; E78.5 Hyperlipidemia, unspecified; I10 Essential (primary) hypertension; Z79.899 Other long term (current) drug therapy
CPT/HCPCS: 36415; 51701; 80053; 81003; 81015; 82553; 83605; 84484; 85025; 93005; 96361; 96374; A4353; J0696

== ENCOUNTER 2018-10-02 12:40 | Emergency (ER) | payer MEDICARE ==
[2018-10-02 13:03] LABS: #Eosinphils 0.2 thou/uL (0.0-0.7); #Lymphocytes 1.2 thou/uL (1.20-3.40); #Monocytes 0.6 thou/uL (0.11-0.59); #Neutrophils 3.3 thou/uL (1.40-6.50); %Basophils 0.9 % (0.0-1.0); %Eosinophils 3.1 % (0.0-10.0); %Lymphocytes 23.3 % (21.0-51.0); %Monocytes 10.4 % (0.0-10.0); %Neutrophils 62.2 % (42.0-75.0); Hemoglobin 10.5 g/dL (12.0-16.0); Mean Corpuscular HGB CONC 33.3 g/dL (32.0-36.0); Mean Corpuscular Hemoglobin 32.5 pg (27.0-31.0); Mean Corpuscular Volume 97.6 fL (78.0-98.0); Mean Platelet Volume 5.8 fL (7.4-10.4); Platelet Count 250 thou/uL (130-400); RBC Distribution Width 13.2 % (11.5-14.5); Red Blood Cell (RBC) Count 3.22 mill/uL (4.20-5.40); White Blood Cell (WBC) Count 5.2 thou/uL (4.8-10.8)
[2018-10-02 13:08] LABS: Manual Diff?? NO
[2018-10-02 13:17] LABS: ALT (SGPT) 19 U/L (8-55); AST (SGOT) 26 U/L (5-34); Albumin 3.2 g/dL (3.4-4.8); Alkaline Phosphatase 58 U/L (40-150); Anion Gap 10 mmol/L (10-20); BUN (Urea Nitrogen) 38 mg/dL (9.8-20.1); Bilirubin, Total 0.5 mg/dL (0.2-1.2); Calc. Creatinine Clearance 0 mL/min (70-130); Calcium 9.7 mg/dL (7.8-10.44); Carbon Dioxide 26 mmol/L (23-31); Chloride 105 mmol/L (98-107); Estimated GFR-MDRD 27; Glucose 157 mg/dL (83-110); Potassium 4.1 mmol/L (3.5-5.1); Protein, Total 8.2 g/dL (6.0-8.3); Sodium 137 mmol/L (136-145)
[2018-10-02 13:35] LABS: CKMB 1.9 ng/mL (0-6.6)
--- NOTE | 2018-10-02 14:01 | RAD ---
PORTABLE CHEST: Date: 10-02-18 An AP portable film at 1235 is compared with a 01-11-17 study. The heart is mildly enlarged but unchanged. There has been a prior CABG. A cardiac pacer remains in p lace. Allowing for the depth of inspiration, there is probably no edema or vascular congestion. No la rge effusions are seen. There is no focal pulmonary infiltrate. IMPRESSION: Mild cardiomegaly with little change from the last study. POS: [facility]
== END 2018-10-02 14:50 | disposition short-term general hospital (02) ==
LOC: BURERS 12:40
DX: R07.2 Precordial pain (principal); I25.2 Old myocardial infarction; Z86.73 Personal history of transient ischemic attack (TIA), and cerebral infarction without residual deficits; E03.9 Hypothyroidism, unspecified; E11.9 Type 2 diabetes mellitus without complications; I10 Essential (primary) hypertension; Z79.899 Other long term (current) drug therapy; Z79.82 Long term (current) use of aspirin
CPT/HCPCS: 71045; 80053; 82553; 83880; 84484; 85025; 93005